=== PATIENT | female | born 1995 | race Caucasian/White ===

== ENCOUNTER 2020-06-26 18:29 | Emergency (ER) | payer BC, OTHER ==
[2020-06-26 19:37] LABS: HEMOGLOBIN 13.7 gm/dl (12.3-15.3); RED BLOOD COUNT 4.59 M/UL (4.00-5.10); WHITE BLOOD COUNT 14.5 K/UL (4.5-11.0)
[2020-06-26 19:55] LABS: BUN/CREATININE RATIO 17 (0-10)
[2020-06-26] MEDS ORDERED: DICLEGIS DR 101 EACH PO (20:29)
== END 2020-06-26 20:33 | disposition home or self-care (01) ==
LOC: ER1 18:29
PROVIDERS: Physician Assistant Medical
DX: O21.9 Vomiting of pregnancy, unspecified (principal); Z3A.09 9 weeks gestation of pregnancy
CPT/HCPCS: 36415; 80053; 81001; 85025; 85610; 96374; 99284; J2765